=== PATIENT | male | born 1960 | race Caucasian/White ===

== ENCOUNTER → 2017-04-05 | Outpatient (CLI) | payer MEDICARE ==
[2014-11-30 15:05] VITALS: BP 100/47
[~2017-04-05] MED LIST: BUPR150T6 PO; HYDR-2758 PO; MIDO5TAB PO; PENI500T PO
--- NOTE | 2017-04-06 05:36 | CARD ---
APPROVED REPORT EXAM: Two-dimensional and M-mode echocardiogram with Doppler and color Doppler. Other Information Quality : Good INDICATION Syncope 2D DIMENSIONS Left Atrium(2D)2.7 (1.6-4.0cm)IVSd1.2 (0.7-1.1cm) Aortic Root(2D)2.6 (2.0-3.7cm)LVDd4.3 (3.9-5.9cm) LVOT Diameter2.0 (1.8-2.4cm)PWd1.2 (0.7-1.1cm) LVDs2.9 (2.5-4.0cm)FS (%) 32.1 % SV49.4 mlLVEF(%)60.6 (>50%) Aortic Valve AoV Peak Patrice.214.7cm/sAoV VTI36.3cm AO Peak GR.18.4mmHgLVOT Peak Patrice.107.3cm/s AO Mean GR.10mmHgAVA (VMAX)1.50cm2 STEWART (VTI)1.70cm2 Mitral Valve MV E Tckjiigi71.2cm/sMV DECEL QDXE958al MV A Nnvqhgpm485.2cm/sE/A Ratio0.9 Tricuspid Valve TR P. Narhukzz138rd/sRAP ZZZPHHVI6coNl TR Peak Gr.41iiFkPDGE45mnWu LEFT VENTRICLE The left ventricle is normal size. There is mild concentric left ventricular hypertrophy. Left ventri marisol systolic function is normal. The Ejection Fraction is 55-60%. There is normal LV segmental wall m otion. Transmitral Doppler flow pattern is Grade II-pseudonormal filling dynamics. RIGHT VENTRICLE The right ventricle is normal size. The right ventricular systolic function is normal. Pacer wire see n in Right Ventricle and Right Atria. ATRIA The left atrium size is normal. The right atrium size is normal. The interatrial septum is intact wit h no evidence for an atrial septal defect or patent foramen ovale as noted on 2-D or Doppler imaging. AORTIC VALVE Not well visualized. Doppler and Color Flow revealed trace aortic regurgitation. Calculated aortic va lve area is 1.7 cm2 (likely underestimated) with maximum pressure gradient of 18 mmHg and mean pressu re gradient of 10 mmHg. MITRAL VALVE The mitral valve is mildly thickened. There is no evidence of mitral valve prolapse. There is no mitr al valve stenosis. Doppler and Color-flow revealed trace mitral regurgitation. TRICUSPID VALVE The tricuspid valve is normal in structure and function. Doppler and Color Flow revealed mild tricusp id regurgitation. There is no pulmonary hypertension. The PA pressure was estimated at 3 mmHg. There is no tricuspid valve prolapse or vegetation. There is no tricuspid valve stenosis. PULMONIC VALVE Doppler and Color Flow revealed no pulmonic valvular regurgitation. There is no pulmonic valvular avtar nosis. GREAT VESSELS The aortic root is normal in size. The ascending aorta is normal in size. The IVC is normal in size a nd collapses >50% with inspiration. PERICARDIAL EFFUSION There is no pleural effusion. There is no evidence of significant pericardial effusion. Critical Notification Critical Value: No <Conclusion> Left ventricle systolic function is normal. The Ejection Fraction is 55-60%. There is normal LV segmental wall motion. Pacer wire seen in Right Ventricle and Right Atria. Calculated aortic valve area is 1.7 cm2 (likely underestimated) with maximum pressure gradient of 18 mmHg and mean pressure gradient of 10 mmHg.
== END | disposition home or self-care (01) ==
LOC: ECHO 13:50
PROVIDERS: ATTEND Internal Medicine Cardiovascular Disease
DX: I51.7 Cardiomegaly (principal); R55 Syncope and collapse
CPT/HCPCS: 93306

== ENCOUNTER → 2018-04-14 | Outpatient (CLI) | payer MEDICARE ==
[2014-11-30 15:05] VITALS: BP 100/47
[~2018-04-14] MED LIST changes: -HYDR-2758 PO; +HYDR-2761 PO
--- NOTE | 2018-04-14 17:42 | CARD ---
MR#: [id number] Date of Study: 04/14/2018 Ordering Physician: LIVAN HOFFMAN, Referring Physician: LIVAN HOFFMAN Tech: Radha Beck RDCS APPROVED REPORT EXAM: Two-dimensional and M-mode echocardiogram with Doppler and color Doppler. INDICATION Syncope Surgery/Intervention Pacemaker: 2D DIMENSIONS Left Atrium(2D)3.0 (1.6-4.0cm)IVSd1.0 (0.7-1.1cm) Aortic Root(2D)2.3 (2.0-3.7cm)LVDd4.5 (3.9-5.9cm) LVOT Diameter2.0 (1.8-2.4cm)PWd1.1 (0.7-1.1cm) LVDs3.2 (2.5-4.0cm)FS (%) 27.4 % SV48.5 mlLVEF(%)55.0 (>50%) Aortic Valve AoV Peak Patrice.196.0cm/sAoV VTI30.2cm AO Peak GR.15.4mmHgLVOT Peak Patrice.95.3cm/s AO Mean GR.10mmHgAVA (VMAX)1.48cm2 AI P 1/2 Fkac294de Mitral Valve MV E Onetujhc30.2cm/sMV DECEL ZBCO545ms MV A Zocdtqkc02.7cm/sE/A Ratio0.8 Tricuspid Valve TR P. Hemxitmp856aq/sRAP OWOFFCES9xoXb TR Peak Gr.88gjFmYARG62xrFa Pulmonary Vein S1 Dmmfdfpf80.6cm/sD2 Ddqzxonu52.3cm/s LEFT VENTRICLE The left ventricle is normal size. There is normal left ventricular wall thickness. The left ventricu lar systolic function is normal. The Ejection Fraction is 55-60%. There is normal LV segmental wall m otion. Transmitral Doppler flow pattern is Grade I-abnormal relaxation pattern. RIGHT VENTRICLE The right ventricle is normal size. The right ventricular systolic function is normal. There is a pac emaker lead in the right ventricle. ATRIA The left atrium size is normal. The right atrium size is normal. A pacemaker is seen in the right atr ium consistent with history. The interatrial septum is intact with no evidence for an atrial septal d efect or patent foramen ovale as noted on 2-D or Doppler imaging. AORTIC VALVE The aortic valve is not well visualized but appears to be functioning normally by Doppler interrogati on. Doppler and Color Flow revealed mild aortic regurgitation. There is no significant aortic valvula r stenosis. MITRAL VALVE The mitral valve is calcified but opens well. Mitral annular calcification is mild. There is no evide nce of mitral valve prolapse. There is no mitral valve stenosis. Doppler and Color-flow revealed trac e mitral regurgitation. TRICUSPID VALVE The tricuspid valve is normal in structure and function. Doppler and Color Flow revealed trace tricus pid regurgitation. There is mild pulmonary hypertension. The PA pressure was estimated at 32 mmHg. Th ere is no tricuspid valve stenosis. PULMONIC VALVE The pulmonic valve is not well visualized. Doppler and Color Flow revealed no pulmonic valvular regur gitation. There is no pulmonic valvular stenosis. GREAT VESSELS The aortic root is normal in size. The ascending aorta is not well seen. The IVC is normal in size an d collapses >50% with inspiration. PERICARDIAL EFFUSION There is no evidence of significant pericardial effusion. Critical Notification Critical Value: No <Conclusion> The left ventricular systolic function is normal. The Ejection Fraction is 55-60%. There is normal LV segmental wall motion. Transmitral Doppler flow pattern is Grade I-abnormal relaxation pattern. There is a pacemaker lead in the right ventricle. Mild aortic regurgitation. Trace mitral regurgitation. Trace tricuspid regurgitation. There is mild pulmonary hypertension. The PA pressure was estimated at 32 mmHg. There is no evidence of significant pericardial effusion. Signed by : Livan Hoffman, Electronically Approved : 04/14/2018 17:41:44
== END | disposition home or self-care (01) ==
LOC: ECHO 13:26
PROVIDERS: ATTEND Internal Medicine Cardiovascular Disease
DX: I35.1 Nonrheumatic aortic (valve) insufficiency (principal); I27.20 Pulmonary hypertension, unspecified
CPT/HCPCS: 93306

== ENCOUNTER → 2018-05-14 | Outpatient (CLI) | payer MEDICARE ==
[2014-11-30 15:05] VITALS: BP 100/47
--- NOTE | 2018-05-15 08:21 | RAD ---
MR#: [id number] Date of Study: 05/14/2018 Ordering Physician: LIVAN HOFFMAN, Referring Physician: LIVAN HOFFMAN, Tech: Thang Alvarez MBA, RDMS, RVT, RDCS, RTR APPROVED REPORT Patient Location: OUT-PATIENT Indications Rest Pain:Bilaterally VELOCITY AND DOPPLER WAVEFORM ANALYSIS RIGHT cm/secWaveformSeverity LEFT cm/secWaveform Severity dCFA 101.0TriphasicdCFA 92.0Triphasic Prof Fem Art. 58.0BiphasicProf Fem Art. 70.0Biphasic Fem Art Prox. 113.0TriphasicFem Art Prox. 119.0Triphasic Fem Art Mid. 119.0TriphasicFem Art Mid. 116.0Triphasic Fem Art Dist. 105.0TriphasicFem Art Dist. 98.0Triphasic Pop Art(Fossa) 68.0TriphasicPop Art(AK) 67.0Triphasic JEWELRY BENCH MOLDER Prox. 67.0TriphasicPTA Prox. 69.0Triphasic JEWELRY BENCH MOLDER Dist. 72.0TriphasicPTA Dist. 66.0Triphasic Per Art Mid. 48.0TriphasicPer Art Mid. 88.0Triphasic ADDY Prox. 75.0TriphasicATA Prox. 67.0Triphasic DPA 46DPA 79Biphasic Findings Grayscale images of the bilateral lower extremity arterial vessels demonstrate minimal atheroscleroti c plaque. No focal high-grade stenosis identified. Bilaterally from the common femoral artery to the below-knee vessels there are triphasic waveforms an d normal velocities. No stenosis identified. Critical Notification Critical Value: No <Conclusion> No stenosis in the bilateral lower extremity arterial vessels with three-vessel runoff bilaterally. Signed by : Kush Quezada, Electronically Approved : 05/15/2018 08:19:48
== END | disposition home or self-care (01) ==
LOC: US 10:25
PROVIDERS: ATTEND Internal Medicine Cardiovascular Disease
DX: I70.293 Other atherosclerosis of native arteries of extremities, bilateral legs (principal)
CPT/HCPCS: 93925

== ENCOUNTER → 2018-06-16 | Outpatient (CLI) | payer MEDICARE ==
[2014-11-30 15:05] VITALS: BP 100/47
[~2018-06-16] MED LIST changes: +ZOLPIDEM 5 MG TABLET. PO ONE
--- NOTE | 2018-06-18 10:13 | SLEEP ---
DATE OF STUDY: 06/16/2018 ATTENDING PHYSICIAN: Dr. Tello. The patient is a 57-year-old who weighs 170 pounds with a BMI of 19. The patient's Bryan score was 2. The patient underwent split night study at [facility]. During the night study, the patient spent 447 minutes in bed and slept for 305 minutes with a low sleep efficiency of 68%. Sleep latency was prolonged at 80 minutes with a REM latency of 141 minutes. Overall sleep architecture showed increased stage 1 and stage 2 sleep, absent slow wave sleep and reduced REM sleep, which was 14% of the total sleep time. During the initial diagnostic portion of the study, the patient slept for 118 minutes. During that time, the patient had 10 obstructive apneas, 1 mixed apnea, no central apneas and 34 hypopneas. The patient's apnea hypopnea index was 23 per hour with a supine index of 30 per hour. REM sleep was not seen during the diagnostic portion. EKG monitoring revealed an average heart rate of 89 beats per minute, no sustained arrhythmias were observed. Nocturnal oximetry study during the diagnostic portion revealed a mean oxygen saturation of 97% with the lowest of 85%. A 7% of the time oxygen saturation remained between 80% and 89%. PLMS were seen at an index of 162 per hour and 3 per hour caused EEG arousals. The patient met the criteria for CPAP initiation. It was started at 5 cm water and titrated up to 12 cm water. However, best results were seen at a CPAP pressure of 9 cm water. The patient slept for 52 minutes. The patient had supine as well as REM sleep. The patient's AHI was reduced to 0 per hour and oxygen saturation remained above 90%. The patient used a medium size full face mask. IMPRESSION: 1. Moderate sleep apnea-hypopnea syndrome with worsening during supine sleep. Total apnea-hypopnea index 23 per hour with a supine apnea-hypopnea index of 30 per hour. Absence of REM sleep during the diagnostic portion can underestimate the severity of sleep apnea. 2. Severe periodic limb movements of sleep. 3. Reduced sleep efficiency resulting from sleep onset and sleep maintenance insomnia. RECOMMENDATIONS: 1. CPAP at 9 cm water completely eliminated the patient's sleep apnea and should be used on a nightly basis. 2. Follow up in 4-6 weeks to assess compliance and to document clinical improvement. 3. Avoid [employer] depressants. 4. Cautioned regarding driving until symptoms of sleep apnea have resolved with the use of CPAP. 5. The patient's PLMS does not need to be treated unless the patient has symptoms of restless legs during the day. JESUSITA SINGH MD DR: AMBERLY/dong JOB#: [id number] / [id number] LIVAN Vazquez MD MTDD
== END | disposition home or self-care (01) ==
LOC: RT 18:29
PROVIDERS: ATTEND Internal Medicine Critical Care Medicine
DX: G47.33 Obstructive sleep apnea (adult) (pediatric) (principal); G47.61 Periodic limb movement disorder
CPT/HCPCS: 95810

== ENCOUNTER → 2019-06-11 | Outpatient (CLI) | payer MEDICARE ==
[2014-11-30 15:05] VITALS: BP 100/47
[~2019-06-11] MED LIST changes: -MIDO5TAB PO; +MIDO5TAB4 PO; -ZOLPIDEM 5 MG TABLET. PO ONE
--- NOTE | 2019-06-11 10:37 | CARD ---
MR#: [id number] Date of Study: 06/11/2019 Ordering Physician: LIVAN HOFFMAN, Referring Physician: LIVAN HOFFMAN, Tech: Ailyn Lares APPROVED REPORT EXAM: Two-dimensional and M-mode echocardiogram with Doppler and color Doppler. Other Information Quality : FairHR: 79bpm Technically limited study due to body habitus and smoking. INDICATION Syncope Surgery/Intervention Pacemaker: Date: 2014 RISK FACTORS Smoking 2D DIMENSIONS Left Atrium(2D)2.6 (1.6-4.0cm)IVSd1.0 (0.7-1.1cm) Aortic Root(2D)2.9 (2.0-3.7cm)LVDd4.6 (3.9-5.9cm) LVOT Diameter1.9 (1.8-2.4cm)PWd1.0 (0.7-1.1cm) LVDs3.0 (2.5-4.0cm)FS (%) 35.9 % SV64.4 mlLVEF(%)65.5 (>50%) Aortic Valve AoV Peak Patrice.159.7cm/sAoV VTI32.7cm AO Peak GR.10.2mmHgLVOT Peak Patrice.94.4cm/s LVOT VTI 17.86cmAO Mean GR.6mmHg STEWART (VMAX)1.03hl2RRN (VTI)1.57cm2 AI P 1/2 Nayu640nu Mitral Valve MV E Jdlpplnc41.2cm/sMV DECEL DUKN937sm MV A Eccoyjjt260.2cm/sMV E Mean Gr.2mmHg MV XKU20pdV/A Ratio0.8 MVA (PHT)3.57cm2 TDI E/Lateral E'8.0E/Medial E'8.8 Pulmonary Valve PV Peak Eendijcz17.4cm/sPV Peak Grad.3mmHg Tricuspid Valve TR P. Roouemml560lt/sRAP ZNYMMDBX5xyDx TR Peak Gr.37sbKsIDZQ64deZo LEFT VENTRICLE The left ventricle is normal size. There is borderline to mild concentric left ventricular hypertroph y. The left ventricular systolic function is normal and the ejection fraction is within normal range. The Ejection Fraction is 55-60%. There is normal LV segmental wall motion. Transmitral Doppler flow pattern is Grade I-abnormal relaxation pattern. RIGHT VENTRICLE The right ventricle is normal size. There is normal right ventricular wall thickness. The right ventr icular systolic function is normal. There is a pacemaker lead in the right ventricle. ATRIA The left atrium size is normal. There is a pacemaker lead seen in the right atrium. The right atrium size is normal. The interatrial septum is intact with no evidence for an atrial septal defect or english nt foramen ovale as noted on 2-D or Doppler imaging. AORTIC VALVE The aortic valve is not well visualized. Doppler and Color Flow revealed trace aortic regurgitation. There is no significant aortic valvular stenosis. MITRAL VALVE The mitral valve is normal in structure and function. There is no evidence of mitral valve prolapse. There is no mitral valve stenosis. Doppler and Color Flow revealed no mitral valve regurgitation note d. TRICUSPID VALVE The tricuspid valve is normal in structure and function. Doppler and Color Flow revealed trace tricus pid regurgitation with an estimated PAP of 41 mmHg. There is no tricuspid valve stenosis. PULMONIC VALVE The pulmonic valve is not well visualized. Doppler and Color Flow revealed no pulmonic valvular regur gitation. GREAT VESSELS The aortic root is normal in size. The IVC is dilated and collapses >50% with inspiration. PERICARDIAL EFFUSION There is no evidence of significant pericardial effusion. Critical Notification Critical Value: No <Conclusion> The left ventricular systolic function is normal and the ejection fraction is within normal range. Th e Ejection Fraction is 55-60%. Grossly normal wall motion. There is a pacemaker lead in the right ventricle. Technically difficult study. Signed by : Kush Quezada, Electronically Approved : 06/11/2019 10:36:25
== END | disposition home or self-care (01) ==
LOC: ECHO 09:15
PROVIDERS: ATTEND Internal Medicine Cardiovascular Disease
DX: I51.7 Cardiomegaly (principal)
CPT/HCPCS: 93306

== ENCOUNTER → 2020-10-13 | Outpatient (CLI) | payer MEDICARE, OTHER ==
[2014-11-30 15:05] VITALS: BP 100/47
[~2020-10-13] MED LIST changes: +BUPR150T21 PO; -BUPR150T6 PO; +REGADENOSON 0.4 MG/5 ML DISP.SYRIN. IV ONE
--- NOTE | 2020-10-13 17:06 | CARD ---
MR#: [id number] Date of Study: 10/13/2020 Ordering Physician: LIVAN TELLO, Referring Physician: Alma VILLALTA: Brendan Gill [facility] APPROVED REPORT EXAM: Two-dimensional and M-mode echocardiogram with Doppler and color Doppler. Other Information Quality : FairHR: 84bpm Rhythm : NSR INDICATION CVA/TIA RISK FACTORS Smoking 2D DIMENSIONS Left Atrium(2D)3.2 (1.6-4.0cm)IVSd1.0 (0.7-1.1cm) Aortic Root(2D)2.6 (2.0-3.7cm)LVDd4.7 (3.9-5.9cm) PWd1.1 (0.7-1.1cm)LVDs2.8 (2.5-4.0cm) FS (%) 39.3 %SV70.0 ml LVEF(%)69.9 (>50%) Aortic Valve AoV Peak Patrice.174.1cm/sAoV VTI31.2cm AO Peak GR.12.1mmHgLVOT Peak Patrice.84.0cm/s AO Mean GR.6mmHg Mitral Valve MV E Carjdrcd18.1cm/sMV E Peak Gr.6mmHg MV DECEL HAHH366poEU A Sljtzjmo88.8cm/s MV E Mean Gr.4mmHgE/A Ratio0.8 MV A Vtcsxrxe150mc Tricuspid Valve TR P. Xvsoabbf759hd/sTR Peak Gr.22mmHg Pulmonary Vein S1 Gywkrogj89.2cm/sD2 Yiifktem89.9cm/s PVa urrrbbtu184qyvf LEFT VENTRICLE The left ventricle is normal size. There is normal left ventricular wall thickness. The left ventricu lar systolic function is normal. The ejection fraction is 60%. There is normal LV segmental wall сергей on. The left ventricular diastolic function and filling is normal for age. No left ventricle thrombus noted on this study. There is no ventricular septal defect visualized. RIGHT VENTRICLE The right ventricle is normal size. There is normal right ventricular wall thickness. The right ventr icular systolic function is normal. ATRIA The left atrium size is normal. The right atrium size is normal. The interatrial septum is intact wit h no evidence for an atrial septal defect or patent foramen ovale as noted on 2-D or Doppler imaging. AORTIC VALVE Not well visualized Doppler and Color Flow revealed no significant aortic regurgitation. There is no significant aortic valvular stenosis. MITRAL VALVE The mitral valve is normal in structure and function. There is no mitral valve stenosis. Doppler and Color Flow revealed no mitral valve regurgitation noted. TRICUSPID VALVE The tricuspid valve is normal in structure and function. Doppler and Color Flow revealed trace tricus pid regurgitation. There is no tricuspid valve prolapse or vegetation. There is no tricuspid valve st enosis. PULMONIC VALVE Not well visualized. GREAT VESSELS The aortic root is normal in size. The ascending aorta is normal in size. Not well seen The IVC is no rmal in size and collapses >50% with inspiration. PERICARDIAL EFFUSION There is no pleural effusion. There is no evidence of significant pericardial effusion. Critical Notification Critical Value: No <Conclusion> The left ventricular systolic function is normal. The ejection fraction is 60%. There is normal LV segmental wall motion. Trace tricuspid regurgitation. There is no evidence of significant pericardial effusion. Signed by : Livan Tello, Electronically Approved : 10/13/2020 17:05:06
--- NOTE | 2020-10-13 17:08 | RAD ---
MR#: [id number] Date of Study: 10/13/2020 Ordering Physician: LIVAN HOFFMAN Referring Physician: OSCAR VILLALTA Tech: RT Margoth Tompkins) (N) APPROVED REPORT Test Type: Pharmacological Stress Nurse/Tech: Karin Goldsmith R.N. Test Indications: neurocardiogenic syncope Cardiac History: stents, pacemaker, smoker, Medications: see ehr Medical History: see ehr Resting ECG: sr Resting Heart Rate: 90 bpm Resting Blood Pressure: 105/60mmHg Pretest Chest Pain: No chest pain Nurse/Tech Notes lungs cta, heart tones regular Consent: The procedure was explained to the patient in lay terms. Informed consent was witnessed. Jono eout was entered into [employer]. History and Stress Test performed by RT Margoth Tompkins) (N) Pharm. Details Pharmacologic stress testing was performed using 0.4mg per 5ml of regadenoson given intravenously ove r 7-10 seconds. Stress Symptoms No chest pain or symptoms.Dyspnea POST EXERCISE Reason for Termination: Infusion complete Target HR: No Max HR: 117 bpm Max Blood Pressure: 117/65mmHg Chest Pain: No. Arrhythmia: No. ST Change: No. INTERPRETATION Stress EKG Conclusion: Baseline EKG showed sinus rhythm. No ischemic changes at peak stress. No arr hythmias. Imaging Protocol IMAGE PROTOCOL: Rest Tc-99m/stress Tc-99m 1 day Rest: Stress: Viability: Radiopharm.Tc99m KnbqakxysHt41r Sestamibi Hzso33rXw 32.6mCi Duration 15min. 10min. Img Date 10/13/2020 10/13/2020 Inj-Img Ewbn60uzz. 60min. Rest Admin Site:IV - Left AntecubitalAdministrator:RT Margoth Workman)(N) Stress Admin Site: IV - Left AntecubitalAdministrator: RT Margoth Tompkins)(N) STRESS DATA End Diast. Vol.88.0mlAv. Heart Aytt178.0bpm End Syst. Vol.24.0mlCO Index BSA0.0L/min Myocardial Pyxb652.0gEject. Cfygiupu07.0% Stress Rates Pk. Fill Rate2.85EDV/secLVtime Pk. Fill 153.86msec Pk. Empty Rate4.90ESV/secLVtime Pk. Mrdmv384.34msec 1/3 Pk. Fill1.80EDV/sec Stress Scores Regional WT2.00Summed WT6.00 Regional WM0.00Summed WM9.00 Study quality was good. Left Ventricular size was Normal at Rest and Stress. Lung uptake was . Left Ventricular ejection fraction is 69%. The rest and stress images show normal perfusion, normal contraction and thickening. LV Perf. Quant 17 Seg. SSS4.00 17 Seg. SRS7.00 17 Seg. SDS1.00 Stress Defect Extent (% LAD)1.30Rest Defect Extent (% LAD)6.30Rev. Defect Extent (% LAD)0.00 Stress Defect Extent (% LCX) 21.30Rest Defect Extent (% LCX)13.80Rev. Defect Extent (% LCX)2.50 Stress Defect Extent (% RCA)0.00Rest Defect Extent (% RCA)1.10Rev. Defect Extent (% RCA)0.00 Stress Defect Extent (% ЕЛЕНА)7.80Rest Defect Extent (% ЕЛЕНА)9.10Rev. Defect Extent (% ЕЛЕНА)0.40 Conclusion 1. Regadenoson cardioisotope stress test did not show any evidence of ischemia or infarct. 2. Normal left ventricular systolic function with ejection fraction calculated at 69%. 3. Low risk for cardiac events. Signed by : Livan Hoffman, Electronically Approved : 10/13/2020 17:07:35
== END ==
LOC: NM 09:28
PROVIDERS: ATTEND Internal Medicine Cardiovascular Disease
DX: I63.9 Cerebral infarction, unspecified (principal); R55 Syncope and collapse; Z87.891 Personal history of nicotine dependence; Z95.0 Presence of cardiac pacemaker
CPT/HCPCS: 78452; 93017; 93306; A9500; J2785

== ENCOUNTER 2021-03-10 15:34 | Emergency (ER) | payer MEDICARE ==
[~2021-03-10] VITALS: Ht 203.2 cm; Wt 77.2 kg
[~2021-03-10 15:34] MED LIST changes: -REGADENOSON 0.4 MG/5 ML DISP.SYRIN. IV ONE
[2021-03-10] MEDS ORDERED: IV RINGERS,LACTATED 1000ML 1,000 ML IV SCH (17:00)
[2021-03-10] MEDS ORDERED: KETOROLAC 15 MG/ML VIAL. IVP ONE (17:00)
--- NOTE | 2021-03-10 17:04 | PHYS DOC ---
Past Medical History Past Medical History: CVA, Depression Additional Past Medical Histor: pacemaker. PT states he stopped taking medications over a year ago. (MATEUS BECK DO) Past Surgical History: No Surgical History Additional Past Surgical Histo: Facial and nasal reconstruction (MATEUS BECK DO) Smoking Status: Current Every Day Smoker Alcohol Use: Occasionally Drug Use: None (MATEUS BECK DO) General Adult EDM: Chief Complaint: SHORTNESS OF BREATH HPI: HPI: 60-year-old male with history of pacemaker placement presents the emergency department complaining of multiple complaints including fatigue, shortness of breath, nausea, overall not feeling well after he was at a [employer] 1 week ago and was exposed to somebody who is Covid positive. He denies any chest pain, just in that he has a "cramp" on the outside of his chest. He has not taken anything at home for pain. He has been vaccinated with a [employer] vaccine and just had a booster 3 weeks ago. He admits to a sick feeling in his stomach that feels like nausea. He admits to subjective fever and chills, also admits to a cough. The patient denies diarrhea, vomiting, abdominal pain, urinary symptoms, recent trauma, or any other complaints. (MATEUS BECK DO) Review of Systems: Review of Systems: Constitutional: Negative except what was mentioned in HPI. Eyes: Negative except what was mentioned in HPI. HENT: Negative except what was mentioned in HPI. Respiratory: Negative except what was mentioned in HPI. Cardiovascular: Negative except what was mentioned in HPI. GI: Negative except what was mentioned in HPI. : Negative except what was mentioned in HPI. Musculoskeletal: Negative except what was mentioned in HPI. Integument: Negative except what was mentioned in HPI. Neurologic: Negative except what was mentioned in HPI. (MATEUS BECK DO) Heart Score: C/O Chest Pain: No (MATEUS BECK DO) Current Medications: Current Medications Medications (Trade) Dose Ordered Sig/Yaya Start Time Stop Time Status Last Admin Dose Admin Ketorolac Tromethamine (Toradol 15mg Vial) 15 mg 1X ONCE 03/10/21 17:00 03/10/21 17:01 Ringer's Solution 1,000 ml @ 1,000 mls/hr Q1H 03/10/21 17:00 03/10/21 17:59 (MATEUS BECK DO) Allergies: Allergies: Allergies Coded Allergies Type Severity Reaction Last Updated Verified bupropion Allergy Intermediate 03/10/21 No (MATEUS BECK DO) Physical Exam: PE: Constitutional: No acute distress, non-toxic appearance. HENT: Atraumatic, bilateral external ears normal, nose normal. Eyes: PERRLA, EOMI, conjunctiva normal, no discharge. Neck: Normal range of motion, supple, no stridor. Cardiovascular: Heart rate regular rhythm. 2+ radial pulses Lungs & Thorax: No respiratory distress, symmetrical expansion. Bilateral breath sounds clear to auscultation Abdomen: Soft, no tenderness Skin: Warm, dry. Extremities: No tenderness, no cyanosis, ROM intact, no edema. Neurologic: Alert and oriented X 3, normal motor function, normal sensory f unction, no focal deficits noted. Non ataxic gait. GCS 15. Psychologic: Affect normal, judgment normal, mood normal. (MATEUS BECK DO) PE: Constitutional: Well developed, well nourished, no acute distress, non-toxic appearance HENT: Normocephalic, atraumatic Eyes: Conjunctiva normal, no discharge Neck: Normal range of motion, supple Lungs & Thorax: No respiratory distress, equal chest rise and fall Abdomen: Soft, no tenderness Skin: Warm, dry, no erythema, no rash Extremities: No tenderness, ROM intact, no edema Neurologic: Alert and oriented X 3, no focal deficits noted Psychologic: Affect normal, judgment normal (WESLEY CONDON DO) Current Patient Data: Vital Signs: Vital Signs Date Time Temp Pulse Resp B/P (MAP) Pulse Ox O2 Delivery O2 Flow Rate FiO2 03/10/21 16:38 98.1 92 12 119/68 (85) 96 Room Air 98.1 (MATEUS BECK DO) EKG: EKG: Time read: 1640 NSR rate of 93, incomplete right bundle branch block, no ectopic beats, normal axis, normal WI, QRS, and QTc intervals. Impression: No acute ischemic change. Interpreted by me, Mateus Bekc D.O. (MATEUS BECK DO) Radiology/Procedures: Radiology/Procedures: XR CHEST 1V History: Shortness of breath. Comparison: 11/30/2014 Technique: Portable AP radiograph of the chest. Findings: The lungs are hyperinflated. No airspace consolidation, pleural effusion or pneumothorax. Left chest dual-chamber cardiac pacemaker. The cardiomediastinal silhouette and pulmonary vasculature are within normal limits. Osseous structures and soft tissues are unremarkable. Impression: 1. Hyperexpansion compatible with COPD. No acute cardiopulmonary findings. Electronically signed by: Deon Curran MD (03/10/2021 5:26 PM) (MATEUS BECK DO) Course & Med Decision Making: Course & Med Decision Making patient with clinical concerns for viral infection, covid, or PNA. Does not have typical ACS type symptoms, describes discomfort as a "cramp". Will proceed with labs, XR, toradol, fluids and reassessment. Swab pending, labs pending, XR shows hyperinflation/copd type pattern. Patient has no supplemental O2 requirement. 1800: Transfer of care to Dr. Condon at this time Patient's current medical course discussed in rounds and patient is currently updated with medical plan Pending labs, XR, swab result, dispo (MATEUS BECK DO) Course & Med Decision Making 1800-signout received from Dr. Beck for patient with viral type symptoms. Patient does have a history of COPD. Patient seen and evaluated by myself. Labs reviewed. Troponin within normal limits. Chest x-ray without acute finding. Rapid Covid testing negative. PCR Covid testing pending. Symptomatic treatment provided. Sats stable throughout. Patient stable for discharge with outpatient follow-up with PCP. Discussed findings and plan with patient, who acknowledges understanding and agreement. COVID-19 CRITERIA: The patient was evaluated during the global COVID-19 pand emic, and that diagnosis was suspected/considered upon their initial presentation. Their evaluation, treatment and testing was consistent with current guidelines for patients who present with complaints or symptoms that may be related to COVID-19. (WESLEY CONDON DO) Departure Departure Impression: Primary Impression: Bronchitis Additional Impression: Suspected 2019 novel coronavirus infection Disposition: HOME / SELF CARE / HOMELESS Condition: STABLE Referrals: HARDY LIZARRAGA MD (PCP) Patient Instructions: Acute Bronchitis, [id number], Viral Syndrome Additional Instructions: You have been tested for or diagnosed with COVID-19. It is an infection caused by a new type of coronavirus. COVID-19 will cause cold-like or mild flu symptoms in most. It can cause more severe symptoms like problems breathing in some. There is no treatment for COVID-19. The body will clear the infection over time. Self-care will help to ease discomfort. Steps to Take: Self-Care Rest as needed. Healthy habits may help you feel better. Steps include: Choose healthy foods including fruits and vegetables. Drink water throughout the day. Get plenty of sleep each night. If you smoke, try to quit. It may ease breathing. Avoid alcohol. Keep Others Healthy The virus can spread to others. Droplets are released every time you sneeze or cough. The droplets can get into the mouth, nose, or eyes of people near you and lead to infection. To lower the chances of spreading COVID-19 to others: Stay at home until your doctor has said it is safe to leave. If you tested positive this will mean staying isolated until both of the following are true: At least 7 days have passed since the start of illness. You are free of fever for at least 72 hours without the use of medicine. During this time: - Avoid public areas, events, or transportation. Do not return to work or school until your doctor has said it is safe to do so. - Call ahead if you need to go to a medical center. Let them know you may have COVID-19. It will help them guide you where to go. They may also ask you to wear a facemask when you come to the office. - If you call for emergency medical services, let them know you may have COVID- 19. While at home: - Try to avoid close contact with others. Stay about 6 feet away. - If possible, spend most of your time in a separate room from others. - Use a face mask if you will be in close contact with others such as sharing a room or vehicle. - Have someone wipe down common surfaces in the home. Use household operating systems specialist every day on areas like doorknobs, counters, or sinks. - Cough or sneeze into a tissue. Throw the tissue away right after use. If a tissue is not available, cough or sneeze into your elbow. - Wash your hands often. Wash them after sneezing or coughing. Use soap and water and wash for at least 20 seconds. Alcohol based hand chrome cleaner can be used if soap and water is not available. - Do not prepare food for others. Avoid sharing personal items like forks, spoons, or toothbrushes. - Avoid close contact with pets while you are sick. There is no evidence of the virus passing to pets. This is a safety step until more is known about this virus. Isolation can be frustrating. Social interaction can help. Keep in touch with friends and family through phone and tech options. You can still interact with others in your home, just keep a safe distance of about 6 feet. Follow-up: Your doctors office will check in with you to see if there are any changes in your health. You may be asked to keep track of symptoms to share with them. They will also let you know when you are clear to be in public again. Problems to Look Out For: Contact your doctor if your recovery is not going as you expect. Get emergency care if you have problems such as: - Trouble breathing - Nonstop chest pain or pressure - Changes in awareness, confusion, or problems waking - Lips or face have bluish color - Worsening of symptoms If you think you have an emergency, call for emergency medical services right away. As taken from [facility] Benzonatate (BENZONATATE) 200 Mg Capsule 1 CAP PO PRN TID PRN for cough, #30 CAP 0 Refills Prov: WESLEY CONDON DO 03/10/21 Albuterol Sulfate (PROAIR HFA INHALER) 8.5 Gm Hfa.aer.ad 2 PUFF IH PRN Q4-6HRS PRN for wheezing, #1 INHALER 0 Refills Prov: WESLEY CONDON DO 03/10/21 Prednisone (PREDNISONE) 20 Mg Tablet 2 TAB PO DAILY, #8 TAB Start this prescription tomorrow, 03/11/21 Prov: WESLEY CONDON DO 03/10/21 COVID-19 Assessment: COVID-19 Patient Risks: Age 65 or older: No Sign of co-morbidity: Yes Exp to person + for COVID: No Exp to PUI: No Travel from affected area: No Lower respiratory symptoms: Yes Fever: No Other: No (WESLEY CNODON DO) PPE Use: Full PPE with N95 mask or PAPR: Yes (WESLEY CONDON DO) MATEUS BECK DO Mar 10, 2021 17:04 WESLEY CONDON DO Mar 10, 2021 19:31
--- NOTE | 2021-03-10 17:28 | RAD ---
XR CHEST 1V History: Shortness of breath. Comparison: 11/30/2014 Technique: Portable AP radiograph of the chest. Findings: The lungs are hyperinflated. No airspace consolidation, pleural effusion or pneumothorax. Left chest dual-chamber cardiac pacemaker. The cardiomediastinal silhouette and pulmonary vasculature are within normal limits. Osseous structures and soft tissues are unremarkable. Impression: 1. Hyperexpansion compatible with COPD. No acute cardiopulmonary findings. Electronically signed by: Deon Curran MD (03/10/2021 5:26 PM) [id number]
[2021-03-10 17:59] LABS: BASO # 0.1 x10^3/uL (0.0-0.2); BASO % 1 % (0-3); EOS % 0 % (0-3); HEMOGLOBIN 15.3 g/dL (13.0-17.5); LYMPH # 1.1 x10^3/uL (1.0-4.8); LYMPH % 15 % (24-48); MEAN CORPUSCULAR HEMOGLOBIN 31 pg (25-35); MEAN CORPUSCULAR HGB CONC 34 g/dL (31-37); MEAN CORPUSCULAR VOLUME 91 fL (79-100); MONO # 1.2 x10^3/uL (0.0-1.1); MONO % 16 % (0-9); NEUT # 5.1 x10^3/uL (1.8-7.7); NEUT % 69 % (31-73); PLATELET COUNT 156 x10^3/uL (140-400); RED BLOOD COUNT 4.93 x10^6/uL (4.30-5.70); RED CELL DISTRIBUTION WIDTH 13.3 % (11.5-14.5); WHITE BLOOD COUNT 7.5 x10^3/uL (4.0-11.0)
[2021-03-10 18:09] LABS: CALCIUM 8.3 mg/dL (8.5-10.1); CREATININE 1.2 mg/dL (0.7-1.3); POTASSIUM 4.2 mmol/L (3.5-5.1)
[2021-03-10 18:24] LABS: INFLUENZA A PATIENT NEGATIVE (NEGATIVE); INFLUENZA B PATIENT NEGATIVE (NEGATIVE)
[2021-03-10] MEDS ORDERED: DEXAMETHASONE 4 MG TABLET PO ONE (19:30)
[2021-03-10] MEDS ORDERED: ALBU2.5V8 IH (19:31)
[2021-03-10] MEDS ORDERED: BENZ200C47 PO (19:31)
[2021-03-10] MEDS ORDERED: PRED20TA PO (19:31)
[2021-03-10 19:33] VITALS: BP 99/68
--- NOTE | 2021-03-13 11:20 | NUR ---
IP: Attempted to contact pt concerning covid results. No answer, left a voicemail to return the call. Addendum: 03/13/21 at 1213 by CARLOS VELASQUEZ RN Pt returned my call. Informed pt of positive covid test and the need to quarantine for 10 days. Pt verbalized understanding.
== END 2021-03-10 19:54 | disposition home or self-care (01) ==
LOC: ER 15:34
DX: U07.1 COVID-19 (principal); J40 Bronchitis, not specified as acute or chronic; F17.200 Nicotine dependence, unspecified, uncomplicated; Z86.73 Personal history of transient ischemic attack (TIA), and cerebral infarction without residual deficits; Z95.0 Presence of cardiac pacemaker; Z88.8 Allergy status to other drugs, medicaments and biological substances
CPT/HCPCS: 36415; 71045; 80048; 83880; 84484; 85025; 87426; 87804; 96361; 96374; 99285; J1885; J7120; U0003; U0005